=== PATIENT | male | born 1950 | race Caucasian/White ===

== ENCOUNTER → 2018-02-05 11:05 | Outpatient (CLI) | payer MEDICARE, SELFPAY ==
--- NOTE | 2018-02-05 11:14 | RAD_ITS ---
STUDY: X-RAY - ABDOMEN/PELVIS REASON FOR EXAM: Male, 67 years old. Right-sided flank pain TECHNIQUE: AP supine and upright views of the abdomen and pelvis. COMPARISON: None. FINDINGS: Normal visualized lung bases. There is a moderate amount of colonic fecal material. There is no demonstrated free abdominal air. The visualized liver, spleen and kidneys are grossly normal in size and morphology. Normal soft tissue structures. There are diffuse degenerative changes of the visualized lumbar spine. RAD/Abd Inc Decub and/or Erect IMPRESSION: Fecal retention throughout the colon Electronically Signed: Peterson Saenz DO at 10:33 EDT Tel , Service support ,
== END ==
PROVIDERS: Family Provider Family Medicine; PCP Family Medicine; Visit Provider Urology
DX: N20.0 Calculus of kidney (principal)
CPT/HCPCS: 74019

== ENCOUNTER → 2018-04-29 14:32 | Outpatient (CLI) | payer MEDICARE, SELFPAY ==
--- NOTE | 2018-04-29 15:00 | RAD_ITS ---
STUDY: X-RAY - ABDOMEN/PELVIS REASON FOR EXAM: Male, 68 years old. Right flank pain TECHNIQUE: 2 views COMPARISON: None. FINDINGS: There are 2 faint calcifications in the upper and lower halves of the left kidney. There is also a faint calcific density in the upper half of the right kidney. There are mild degenerative changes of the lower thoracic spine. The lumbosacral spine is normal. There is no bowel distention or free intraperitoneal air. One or 2 phleboliths are in the right pelvis. RAD/Abdomen Single View IMPRESSION: 2 calculi suspected in the left kidney and one in the right kidney. No intestinal obstruction. Mild degenerative changes of the lower thoracic spine Electronically Signed: Nasir Brown MD at 3:27 EDT Tel , Service support ,
== END ==
PROVIDERS: Family Provider Family Medicine; PCP Family Medicine; Referring Provider Urology; Visit Provider Urology
DX: R10.9 Unspecified abdominal pain (principal)
CPT/HCPCS: 74018